=== PATIENT | female | born 1935 | race Caucasian/White ===

== ENCOUNTER → 2016-11-19 | Outpatient (CLI) | payer MEDICARE ==
--- NOTE | 2016-11-19 14:57 | KCIC ---
History: Arthritis, M17.0. Comparison: None. Findings: AP, lateral, and oblique views of the right knee. No acute fracture or dislocation is identified. No joint effusion is seen. Moderate tricompartment degeneration is seen with marginal osteophyte formation. A few small joint bodies are suspected. AP, lateral, and oblique views of the left knee. No acute fracture or dislocation is identified. No joint effusion is seen. Mild-moderate tricompartment degeneration is present. Impression: Bilateral knee degeneration, right worse than left. Electronically signed by: Cuba Mayberry MD (11/19/2016 2:53 PM) [place] [id number]
== END | disposition home or self-care (01) ==
LOC: KCIC 14:29
PROVIDERS: ATTEND Family Medicine
DX: M17.0 Bilateral primary osteoarthritis of knee (principal)
CPT/HCPCS: 73562

== ENCOUNTER → 2020-06-27 | Outpatient (CLI) | payer MEDICARE ==
[2020-06-06 11:00] VITALS: BP 115/83
[~2020-06-27] MED LIST: APIX5TAB PO; DONE10TA7 PO
== END ==
LOC: LAB 09:54
PROVIDERS: ATTEND Internal Medicine Cardiovascular Disease
DX: Z01.812 Encounter for preprocedural laboratory examination (principal); Z20.822 Contact with and (suspected) exposure to COVID-19
CPT/HCPCS: U0003; U0005

== ENCOUNTER 2020-06-28 06:55 | Outpatient (CLI) | payer MEDICARE, OTHER ==
[~2020-06-28] VITALS: Ht 175.3 cm; Wt 55.8 kg
[2020-06-28] VITALS (9 sets, daily range): BP systolic 91–134; BP diastolic 56–80
[2020-06-28 07:44] LABS: HEMATOCRIT 35.7 % (36.0-47.0); HEMOGLOBIN 11.9 g/dL (12.0-15.5); RED BLOOD COUNT 3.82 x10^6/uL (3.50-5.40); RED CELL DISTRIBUTION WIDTH 15.9 % (11.5-14.5); WHITE BLOOD COUNT 4.4 x10^3/uL (4.0-11.0)
[2020-06-28 07:56] LABS: PROTHROMBIN TIME PATIENT 12.9 SEC (11.7-14.0)
[2020-06-28 07:57] LABS: CALCIUM 8.2 mg/dL (8.5-10.1); CREATININE 0.7 mg/dL (0.6-1.0); GFR 79.2; POTASSIUM 3.6 mmol/L (3.5-5.1)
[2020-06-28] MEDS ORDERED: LIDOCAINE 2%/EPI 1:100,000 20 ML VIAL. ONE (08:10)
[2020-06-28] MEDS ORDERED: MIDAZOLAM HCL/PF 2 MG/2 ML VIAL. ONE (08:20)
[2020-06-28] MEDS ORDERED: ceFAZolin SODIUM IV Push 1 GM VIAL. IVP ONE (08:20)
[2020-06-28] MEDS ORDERED: fentaNYL PF VIAL 100 MCG/2 ML VIAL ONE (08:20)
[2020-06-28] MEDS ORDERED: BACITRACIN 50,000 UNIT in IV NORMAL SALINE 250ML 250 ML IRR ONE (08:30)
--- NOTE | 2020-06-28 08:40 | PDOC ---
MODERATE SEDATION ASSESSMENT RISKS/ALTERNATIVES Risks/Alternatives Risks and alternatives of this type of sedation and procedure discussed with: RISK/ALTERNATIVES: Patient H & P ON CHART H & P H & P on chart and reviewed for co-morbid conditions and appropriate labs. H&P ON CHART: Yes STATUS PREG STATUS ASSESSED: N/A MEDS/ALLERGIES REVIEWED Meds/Allergies Reviewed Medications and Allergies including time and route of recently administered narcotics and sedatives. MEDS/ALLERGIES REVIEWED: Yes ASA RATING ASA RATING: II AIRWAY ASSESSMENT Airway Assessment Airway patency, oral function limitations, presence of caps, crowns, dentures, partials, and ability to extend neck assessed. AIRWAY ASSESSMENT: Yes MALLAMPATI SCORE MALLAMPATI SCORE: II PRE-SEDATION ASSESSMENT PRE-SEDATION ASSESSMENT: Yes DANNY GIVENS MD June 28, 2020 08:40
[2020-06-28] MEDS ORDERED: MIDAZOLAM HCL/PF 2 MG/2 ML VIAL. IV ONE (09:00)
[2020-06-28] MEDS ORDERED: fentaNYL PF VIAL 100 MCG/2 ML VIAL IV ONE (09:00)
[2020-06-28] MEDS ORDERED: LIDOCAINE 1%/EPI 1:100,000 20 ML VIAL. INJ ONE (09:00)
--- NOTE | 2020-06-28 09:38 | CARD ---
MR#: [id number] Date of Study: 06/28/2020 Ordering Physician: HAILEY QUINTANA, Referring Physician: HAILEY QUINTANA, Tech: APPROVED REPORT PROCEDURES Medtronic dual-chamber permanent pacemaker generator change FL TIME: 0.2 MINS DOSE: 0.5 GYCM2 MODERATE SEDATION: 33 MINUTES INDICATIONS Sick sinus syndrome s/p permanent pacemaker implantation presenting with battery depletion PROCEDURE After explaining the risks, benefits, and alternative options, informed consent was obtained from the patient. The patient was brought to the cardiac catheterization lab and the left chest and shoulder were prepp ed and draped in a sterile manner. IV conscious sedation was used throughout procedure with appropriate monitoring and was performed in the presence of a registered nurse who was an independent trained observer other than the physician p erforming the procedure. Specimen(s) Removed: No Estimated Blood loss: 15 cc's. 30 cc of 2% lidocaine was infiltrated into the skin and subcutaneous tissues for local anesthesia. A n incision was made over the previous scar and using blunt dissection and cautery, the pocket was ope denis, the capsule exposed and opened and the previously placed generator removed from the pocket. The leads were detached, interrogated and found to be functioning well and very attached to a new Medtro bobby dual-chamber permanent pacemaker generator model [id number], serial number [id number]. This was plac ed in the pocket, that was subsequently closed in 3 layers. Hemostasis was secured. Patient tolerat ed the procedure well. There were no immediate complications. THE VENTRICULAR ELECTRODE PARAMETERS A new lead was inserted/positioned into the ventricle and attached to the appropriate receptacle on the new pulse generator and setscrews firmly tightened to insure adequate contact and stability. The lead and pulse generator were placed into the subcutaneous pocket. Sharp and sponge counts were conf irmed to be correct. The operative site was dressed in sterile fashion. The patient tolerated the pro cedure well and was transferred tothe floor in stable condition. CONCLUSION Successful Medtronic dual-chamber permanent pacemaker generator change in a patient with sick sinus s yndrome s/p permanent pacemaker implantation presenting with battery depletion. Signed by : Shaw Cooper, Electronically Approved : 06/28/2020 09:38:25
--- NOTE | 2020-06-28 11:52 | NUR ---
discharge instructions reviewed with family. PIV dc'd. Pt ambulated and tolerated PO
[2020-06-29] MEDS ORDERED: ceFAZolin SODIUM IV Push 1 GM VIAL. IVP ONE (06:00)
== END 2020-06-28 11:54 | disposition home or self-care (01) ==
LOC: CCL 06:55
PROVIDERS: ATTEND Internal Medicine Cardiovascular Disease
DX: I49.5 Sick sinus syndrome (principal); M19.90 Unspecified osteoarthritis, unspecified site; F32.9 Major depressive disorder, single episode, unspecified; Z79.899 Other long term (current) drug therapy; Z98.890 Other specified postprocedural states
CPT/HCPCS: 33228; 36415; 80048; 85027; 85610; 99152; 99153; C1785; J0690; J2250; J3010; J3490; J7050; 33213; J7030

== ENCOUNTER 2020-10-19 14:12 | Emergency (ER) | payer MEDICARE, OTHER ==
[~2020-10-19] VITALS: Ht 167.6 cm; Wt 64.0 kg
--- NOTE | 2020-10-19 14:24 | ED.ADGEN ---
Past Medical History Past Medical History: Dementia, Diverticulitis, Other Additional Past Medical Histor: pacemaker, syncope, Past Surgical History: Other Smoking Status: Never Smoker Alcohol Use: None General Adult HPI: HPI: Patient is a 85 year old female coming in via EMS after fall last night resulting in right knee pain and low back pain. Patient has history of Alzheimer's and history provided by EMS and . not directly witnessed fall believes was of counter: There is no loss of consciousness. No prolonged downtime. Patient takes Eliquis. No bleeding or open wounds. Review of Systems: Review of Systems: All other systems within normal limits except for as noted in the HPI Allergies: Allergies: Allergies Coded Allergies Type Severity Reaction Last Updated Verified No Known Drug Allergies 10/19/20 No Physical Exam: PE: Constitutional: Well developed, well nourished, no acute distress, non-toxic appearance. [] HENT: Normocephalic, atraumatic, bilateral external ears normal, nose normal. [] Eyes: PERRLA, conjunctiva normal, no discharge. [] Neck: No rigidity, supple, no stridor. [] Cardiovascular: Regular rate and rhythm, brisk cap refill [] Lungs & Thorax: Non labored symmetric respirations, no tachypnea or respiratory distress [] Abdomen: Soft, nondistended. Skin: Warm, dry, no erythema, no rash. [] Back: Unremarkable, no step-off deformity, tenderness on the lumbar spine and right sacrum Extremities: No deformities, range of motion grossly intact, no lower extremity edema. Right knee mildly swollen compared to left, no deformity or crepitus. [] Neurologic: Alert and oriented X 3, no focal deficits noted. [] Psychologic: Affect normal, judgement normal, mood normal. [] Current Patient Data: Labs: Laboratory Tests Test 10/19/20 14:30 White Blood Count 5.6 x10^3/uL (4.0-11.0) Red Blood Count 3.86 x10^6/uL (3.50-5.40) Hemoglobin 11.8 g/dL (12.0-15.5) L Hematocrit 35.1 % (36.0-47.0) L Mean Corpuscular Volume 91 fL (79-100) Mean Corpuscular Hemoglobin 31 pg (25-35) Mean Corpuscular Hemoglobin Concent 34 g/dL (31-37) Red Cell Distribution Width 14.7 % (11.5-14.5) H Platelet Count 219 x10^3/uL (140-400) Neutrophils (%) (Auto) 71 % (31-73) Lymphocytes (%) (Auto) 16 % (24-48) L Monocytes (%) (Auto) 11 % (0-9) H Eosinophils (%) (Auto) 1 % (0-3) Basophils (%) (Auto) 1 % (0-3) Neutrophils # (Auto) 4.0 x10^3/uL (1.8-7.7) Lymphocytes # (Auto) 0.9 x10^3/uL (1.0-4.8) L Monocytes # (Auto) 0.6 x10^3/uL (0.0-1.1) Eosinophils # (Auto) 0.1 x10^3/uL (0.0-0.7) Basophils # (Auto) 0.0 x10^3/uL (0.0-0.2) Sodium Level 140 mmol/L (136-145) Potassium Level 3.7 mmol/L (3.5-5.1) Chloride Level 108 mmol/L (98-107) H Carbon Dioxide Level 26 mmol/L (21-32) Anion Gap 6 (6-14) Blood Urea Nitrogen 10 mg/dL (7-20) Creatinine 0.7 mg/dL (0.6-1.0) Estimated GFR (Cockcroft-Gault) 79.2 BUN/Creatinine Ratio 14 (6-20) Glucose Level 130 mg/dL (70-99) H Calcium Level 8.5 mg/dL (8.5-10.1) Total Bilirubin 0.6 mg/dL (0.2-1.0) Aspartate Amino Transferase (AST) 15 U/L (15-37) Alanine Aminotransferase (ALT) 22 U/L (14-59) Alkaline Phosphatase 89 U/L (46-116) Troponin I Quantitative < 0.017 ng/mL (0.000-0.055) Total Protein 6.2 g/dL (6.4-8.2) L Albumin 3.2 g/dL (3.4-5.0) L Albumin/Globulin Ratio 1.1 (1.0-1.7) Laboratory Tests 10/19/20 14:30 Laboratory Tests 10/19/20 14:30 Vital Signs: Vital Signs Date Time Temp Pulse Resp B/P (MAP) Pulse Ox O2 Delivery O2 Flow Rate FiO2 10/19/20 14:31 97.5 76 16 131/62 99 Room Air 97.5 EKG: EKG: [] Heart Score: C/O Chest Pain: No HEART Score for Chest Pain: HEART Score for Chest Pain Response (Comments) Value History Slighlty/Non-Suspicious 0 Age > 65 2 Risk Factors 1 or 2 Risk Factors 1 Troponin < Normal Limit 0 Total 3 Risk Factors: Risk Factors: DM, Current or recent (<one month) smoker, HTN, HLP, family history of CAD, obesity. Risk Scores: Score 0 - 3: 2.5% MACE over next 6 weeks - Discharge Home Score 4 - 6: 20.3% MACE over next 6 weeks - Admit for Clinical Observation Score 7 - 10: 72.7% MACE over next 6 weeks - Early Invasive Strategies Radiology/Procedures: Radiology/Procedures: [facility] [address] [place] [address] IMAGING REPORT Signed PATIENT: ALVERTO PINA ACCOUNT: [id number] : 1935 LOCATION: ER AGE: 85 SEX: F EXAM STATUS: REG ER ORD. PHYSICIAN: MALCOM TONG MD REASON: fall, sacral pain PROCEDURE: CT PELVIS WO CONTRAST EXAMINATION: CT lumbar spine and pelvis without IV contrast INDICATION:85 years, Female, fall, low back pain. COMPARISON: 03/08/2012 TECHNIQUE: Spiral acquisition of images of the lumbar spine and pelvis were obtained without IV contrast. Sagittal and coronal 2D reformatted series were provided by the technologist. The CT scan was acquired using radiation reduction techniques, such automated exposure control, adjustment of the mA and/or kV according to the patient's size and use of iterative reconstruction techniques. FINDINGS: CT LUMBAR SPINE: The vertebral bodies are normal in height. No acute fracture or subluxation. Grade 1 anterolisthesis of L4 over L5. Lumbarization of S1. Diffuse osteopenia. Mild levoconvex scoliosis with severe multilevel degenerative changes, worst at L4-5 and L5-S1. No significant canal stenosis. Mild multilevel bilateral neuroforaminal narrowing. There is a 2.7 cm left renal cyst. CT PELVIS: No acute fracture, dislocation or subluxation. Severe degenerative changes in sacroiliac joints. Diffuse osteopenia. Extensive colonic diverticulosis. Few cystic structures in the left pelvic sidewall with the largest measures 6.6 cm. There is a 4.0 cm fluid density cystic lesion in the subcutaneous tissue of the right anterior abdominal wall, favors benign etiology. IMPRESSION: 1. No acute osseous process in the lumbar spine or pelvis. 2. Few cystic structures in the left pelvic sidewall measuring up to 6.6 cm. Differential includes bladder diverticula versus ovarian cysts. Recommend further evaluation with nonemergent pelvic ultrasound. 3. Extensive colonic diverticulosis. Electronically signed by: Kalia Soto MD (10/19/2020 3:15 PM) [facility] DICTATED and SIGNED BY: KALIA SOTO MD DATE: 10/19/20 [id number] 0 [] [facility] [address] [place] [address] IMAGING REPORT Signed PATIENT: ALVERTO PINA ACCOUNT: [id number] : 1935 LOCATION: ER AGE: 85 SEX: F EXAM STATUS: REG ER ORD. PHYSICIAN: MALCOM TONG MD REASON: fall,l swelling PROCEDURE: KNEE RIGHT 3V XR KNEE 3 VIEWS_RT History: Fall, swelling Comparison: 11/19/2016 Technique: 3 views of the right knee. Findings: Decreased osseous mineralization. No fracture or dislocation. Tricompartmental degenerative changes with irregularity at the medial femoral condyle, tricompartmental osteophytes and large popliteal fossa osteochondral body measuring 2 cm diameter. No knee effusion. No focal soft tissue swelling. Impression: 1. Moderate tricompartmental degenerative changes without acute osseous abnormality of the right knee. Electronically signed by: Roel Bermeo MD (10/19/2020 2:48 PM) [id number] DICTATED and SIGNED BY: ROEL BERMEO MD DATE: 10/19/20 [id number] 0 Course & Med Decision Making: Course & Med Decision Making Pertinent Labs and Imaging studies reviewed. (See chart for details) Patient up and ambulatory with a steady gait. No injuries found. and patient requesting to be discharged. [] Dragon Disclaimer: Dragon Disclaimer: This electronic medical record was generated, in whole or in part, using a voice recognition dictation system. Departure Departure Impression: Primary Impression: Fall Additional Impression: Knee pain, right Disposition: HOME / SELF CARE / HOMELESS Condition: STABLE Referrals: ZAMZAM HE MD (PCP) Patient Instructions: RICE - Routine Care for Injuries Problem Qualifiers MALCOM TONG MD Oct 19, 2020 14:24
[2020-10-19 14:36] LABS: BASO % 1 % (0-3); EOS # 0.1 x10^3/uL (0.0-0.7); EOS % 1 % (0-3); HEMATOCRIT 35.1 % (36.0-47.0); HEMOGLOBIN 11.8 g/dL (12.0-15.5); LYMPH # 0.9 x10^3/uL (1.0-4.8); LYMPH % 16 % (24-48); MEAN CORPUSCULAR HEMOGLOBIN 31 pg (25-35); MEAN CORPUSCULAR HGB CONC 34 g/dL (31-37); MEAN CORPUSCULAR VOLUME 91 fL (79-100); MONO # 0.6 x10^3/uL (0.0-1.1); MONO % 11 % (0-9); NEUT % 71 % (31-73); PLATELET COUNT 219 x10^3/uL (140-400); RED BLOOD COUNT 3.86 x10^6/uL (3.50-5.40); RED CELL DISTRIBUTION WIDTH 14.7 % (11.5-14.5); WHITE BLOOD COUNT 5.6 x10^3/uL (4.0-11.0)
[2020-10-19 14:47] LABS: CALCIUM 8.5 mg/dL (8.5-10.1); CREATININE 0.7 mg/dL (0.6-1.0); GFR 79.2; POTASSIUM 3.7 mmol/L (3.5-5.1)
--- NOTE | 2020-10-19 14:51 | RAD ---
XR KNEE 3 VIEWS_RT History: Fall, swelling Comparison: 11/19/2016 Technique: 3 views of the right knee. Findings: Decreased osseous mineralization. No fracture or dislocation. Tricompartmental degenerative changes w ith irregularity at the medial femoral condyle, tricompartmental osteophytes and large popliteal linnette a osteochondral body measuring 2 cm diameter. No knee effusion. No focal soft tissue swelling. Impression: 1. Moderate tricompartmental degenerative changes without acute osseous abnormality of the right kne e. Electronically signed by: Roel Nelson MD (10/19/2020 2:48 PM) [id number]
[2020-10-19 14:55] LABS: ALBUMIN 3.2 g/dL (3.4-5.0); ALBUMIN/GLOBULIN RATIO 1.1 (1.0-1.7); TOTAL BILIRUBIN 0.6 mg/dL (0.2-1.0); TOTAL PROTEIN 6.2 g/dL (6.4-8.2)
--- NOTE | 2020-10-19 15:18 | RAD ---
EXAMINATION: CT lumbar spine and pelvis without IV contrast INDICATION:85 years, Female, fall, low back pain. COMPARISON: 03/08/2012 TECHNIQUE: Spiral acquisition of images of the lumbar spine and pelvis were obtained without IV contr ast. Sagittal and coronal 2D reformatted series were provided by the technologist. The CT scan was ac quired using radiation reduction techniques, such automated exposure control, adjustment of the mA an d/or kV according to the patient's size and use of iterative reconstruction techniques. FINDINGS: CT LUMBAR SPINE: The vertebral bodies are normal in height. No acute fracture or subluxation. Grade 1 anterolisthesis of L4 over L5. Lumbarization of S1. Diffuse osteopenia. Mild levoconvex scoliosis wi th severe multilevel degenerative changes, worst at L4-5 and L5-S1. No significant canal stenosis. Mi ld multilevel bilateral neuroforaminal narrowing. There is a 2.7 cm left renal cyst. CT PELVIS: No acute fracture, dislocation or subluxation. Severe degenerative changes in sacroiliac j oints. Diffuse osteopenia. Extensive colonic diverticulosis. Few cystic structures in the left pelvic sidewall with the largest measures 6.6 cm. There is a 4.0 cm fluid density cystic lesion in the subc utaneous tissue of the right anterior abdominal wall, favors benign etiology. IMPRESSION: 1. No acute osseous process in the lumbar spine or pelvis. 2. Few cystic structures in the left pelvic sidewall measuring up to 6.6 cm. Differential includes b ladder diverticula versus ovarian cysts. Recommend further evaluation with nonemergent pelvic ultraso und. 3. Extensive colonic diverticulosis. Electronically signed by: Jasbir Soto MD (10/19/2020 3:15 PM) [facility]
[2020-10-19 16:57] VITALS: BP 147/75
== END 2020-10-19 16:40 | disposition home or self-care (01) ==
LOC: ER 14:12
DX: M25.561 Pain in right knee (principal); M54.5 Low back pain; G89.11 Acute pain due to trauma; G30.9 Alzheimer's disease, unspecified; F02.80 Dementia in other diseases classified elsewhere, unspecified severity, without behavioral disturbance, psychotic disturbance, mood disturbance, and anxiety; W18.39XA Other fall on same level, initial encounter; Y93.89 Activity, other specified; Y92.89 Other specified places as the place of occurrence of the external cause; Y99.8 Other external cause status
CPT/HCPCS: 36415; 72131; 72192; 73562; 80053; 84484; 85025; 99285-25

== ENCOUNTER 2021-05-02 08:33 | Inpatient (IN) | payer MEDICARE ==
[~2021-05-02] VITALS: Ht 170.2 cm; Wt 56.6 kg
--- NOTE | 2021-05-02 08:58 | PHYS DOC ---
Past Medical History Past Medical History: Dementia, Diverticulitis, Other Additional Past Medical Histor: syncope,A-FLUTTER,OA,COVID-19,FALLS Past Surgical History: Pacemaker, Other Smoking Status: Never Smoker Alcohol Use: None General Adult EDM: Chief Complaint: EARACHE/EAR PAIN HPI: HPI: Patient is a 86 year old female who presents here via EMS from her senior care facility with right ear swelling and drainage. I am unable to elicit any meaningful information from the patient secondary to chronic dementia and constant altered mental status. She is reportedly at her baseline mental status per EMS report, from the senior care facility report. No reported injury. According to EMS, the nursing staff told them that they just noticed that your swelling within the last 24 hours. There have been no reported fevers or cough. She also does have some right-sided cheek and facial swelling, which was reportedly just noticed within the last 24 hours also. Review of systems markedly limited secondary to patient's dementia, chronic clinical conditions and lack of verbal report from the senior care facility. Review of Systems: Review of Systems: Review of systems markedly limited secondary to clinical condition, dementia, see HPI. Heart Score: C/O Chest Pain: N/A Risk Factors: Risk Factors: DM, Current or recent (<one month) smoker, HTN, HLP, family history of CAD, obesity. Risk Scores: Score 0 - 3: 2.5% MACE over next 6 weeks - Discharge Home Score 4 - 6: 20.3% MACE over next 6 weeks - Admit for Clinical Observation Score 7 - 10: 72.7% MACE over next 6 weeks - Early Invasive Strategies Allergies: Allergies: Allergies Coded Allergies Type Severity Reaction Last Updated Verified No Known Drug Allergies 10/19/20 No Physical Exam: PE: Constitutional: Frail, chronically ill-appearing, resting comfortably on the ED gurney. Nontoxic. HENT: Normocephalic, atraumatic, oral oropharynx is patent, mucous membranes are dry. There is some subtle soft tissue swelling of the right cheek area, there appears to be moderate soft tissue swelling of the entire right pinna, right external auditory canal is edematous, erythematous, maceration, serous fluid draining. Tympanic membrane does appear to be intact. There appears to be some dried blood adjacent to the TM in the ear canal. There is some mastoid erythema and swelling and tenderness. No palpable crepitus or subcutaneous emphysema. No dusky discoloration of the pinna. There is some subtle erythema of the right cheek and preauricular area of the right ear. No significant facial edema, no evidence of acute trauma. Eyes: GentaVed are pale, sclera anicteric. Neck: Normal range of motion, no tenderness, supple, no stridor. No meningismus, trachea midline Cardiovascular:Heart rate regular rhythm, was 2 radial pulses bilaterally Lungs & Thorax: Bilateral breath sounds clear to auscultation, no rales, rhonchi or wheezes. Equal chest rise Abdomen: Abdomen is soft, nondistended, nontender to palpation. Skin: Subtle warmth and erythema of the right entire pinna, postauricular and preauricular areas of the right ear, swelling and erythema of the external auditory canal of the right ear. Extremities: No limb deformity, pelvis is stable, no calf tenderness. Neurologic: Sleeping, resting, eyes open to voice, eyes open to pain, localizes to pain, no facial asymmetry, mumbles incoherently, not oriented, gag reflex intact, she does appear to move all 4 extremities equally. Psychologic: Affect is flat Current Patient Data: Vital Signs: Vital Signs Date Time Temp Pulse Resp B/P (MAP) Pulse Ox O2 Delivery O2 Flow Rate FiO2 05/02/21 08:33 97.0 62 20 117/92 (100) 100 Room Air 97.0 EKG: EKG: [] Radiology/Procedures: Radiology/Procedures: IMAGING REPORT Signed PATIENT: ALVERTO PINA ACCOUNT: [id number] : 1935 LOCATION: ER AGE: 86 SEX: F EXAM STATUS: REG ER ORD. PHYSICIAN: AARON JAMIL DO REASON: R malignant OE, concern for mastoiditis PROCEDURE: CT HEAD AND MAXILLOFACIAL W/ PQRS Compliance Statement: One or more of the following individualized dose reduction techniques were utilized for this examination: 1. Automated exposure control 2. Adjustment of the mA and/or kV according to patient size 3. Use of iterative reconstruction technique CT HEAD AND MAXILLOFACIAL W Clinical Indication: Reason: R malignant OE, concern for mastoiditis Comparison: None. TECHNIQUE: Helical CT imaging of the brain and maxillofacial is performed after 70 cc of Omnipaque 300 IV contrast. Findings: There is generalized cerebral atrophy. There is no midline shift or mass effect. There is mild motion artifact. There are periventricular white matter changes probably due to chronic small vessel ischemic disease. No abnormal enhancement in the brain parenchyma is identified. The right mastoid air cells are clear. There is motion artifact limiting evaluation of the ossicular chain. There is narrowing of the right external auditory canal. There is opacification at the lateral margin of the middle ear cavity, coronal image 20 of series 11. The opacities just inferior to the scutum, measures approximately 0.8 cm craniocaudal, 1.4 cm transverse, and 0.6 cm AP. No definite bony erosion of the skull base is identified. There is heterogeneous masslike enhancement superficial to the right external auditory canal. The heterogeneous enhancement extends inferiorly and is inseparable from the right parotid gland. The masslike area measures approximately 4.8 cm AP by 4.5 cm transverse by 6.5 cm craniocaudal. IMPRESSION: 1. There is heterogeneous masslike enhancement of the right parotid gland and the right external auditory canal. There is infiltration of surrounding soft tissues. Primary concern is malignancy. Squamous cell carcinoma or parotid neoplasm or metastatic disease are considerations. 2. There is opacity in the lateral right middle ear cavity. The tympanic membrane is likely obscured due to the opacity. The right ossicular chain is probably intact. The right mastoid air cells are clear. No temporal bone erosion is identified. 3. Generalized cerebral atrophy. Electronically signed by: Michael Calderon MD (05/02/2021 11:08 AM) [id number] DICTATED and SIGNED BY: MICHAEL CALDERON MD DATE: 05/02/21 [id number] 0 Course & Med Decision Making: Course & Med Decision Making Pertinent Labs and Imaging studies reviewed. (See chart for details) Blood cultures are obtained. I empirically ordered IV Zosyn and vancomycin for treatment of millages had malignant otitis externa possible mastoiditis. CT findings are concerning for right parotid mass/malignancy. I spoke with the patient's , her power of managing attorney, via phone, about the findings. He does not wish to pursue any biopsy, surgical intervention or further invasive measures or aggressive measures regarding this mass. I did explain that she would likely have to be transferred to another hospital for ENT consultation if that were the case, but he declines and wishes for her to stay here. He is comfortable with continuing IV antibiotics and admission to the hospital here. He confirms DNR status. He is informed of all of the findings and differential diagnosis and the plan of care, he is comfortable with this. The patient is accepted for admission by Dr. Hinojosa. Koffi Disclaimer: Koffi Disclaimer: This electronic medical record was generated, in whole or in part, using a voice recognition dictation system. 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 Hinojosa) Condition: GUARDED Referrals: ZAMZAM HE MD (PCP) AARON JAMIL DO May 02, 2021 08:58
[2021-05-02] MEDS ORDERED: VANCOMYCIN 1.25 GM in IV NORMAL SALINE 500ML BAG 500 ML IV ONE (09:15)
[2021-05-02] MEDS ORDERED: PIPERACILLIN/TAZOBACTAM 3.375 GM in IV NORMAL SALINE 50ML 50 ML IV ONE (09:15)
[2021-05-02 10:05] LABS: BASO % 0 % (0-3); EOS % 0 % (0-3); HEMATOCRIT 34.7 % (36.0-47.0); HEMOGLOBIN 11.1 g/dL (12.0-15.5); LYMPH # 0.3 x10^3/uL (1.0-4.8); LYMPH % 2 % (24-48); MEAN CORPUSCULAR HEMOGLOBIN 30 pg (25-35); MEAN CORPUSCULAR HGB CONC 32 g/dL (31-37); MEAN CORPUSCULAR VOLUME 92 fL (79-100); MONO # 0.9 x10^3/uL (0.0-1.1); MONO % 6 % (0-9); NEUT # 14.3 x10^3/uL (1.8-7.7); NEUT % 93 % (31-73); PLATELET COUNT 268 x10^3/uL (140-400); RED BLOOD COUNT 3.76 x10^6/uL (3.50-5.40); RED CELL DISTRIBUTION WIDTH 17.3 % (11.5-14.5); WHITE BLOOD COUNT 15.4 x10^3/uL (4.0-11.0)
[2021-05-02] MEDS ORDERED: CONTRAST GIVEN. MC PRN (10:15)
[2021-05-02] MEDS ORDERED: IOHEXOL 300 MG/ML 100ML VIAL. IV ONE ×2 (10:15→10:30)
[2021-05-02 10:16] LABS: CALCIUM 9.1 mg/dL (8.5-10.1); CREATININE 0.8 mg/dL (0.6-1.0); GFR 67.7; POTASSIUM 3.5 mmol/L (3.5-5.1)
[2021-05-02] MEDS ORDERED: IV NORMAL SALINE 1000ML BAG 1,000 ML IV ONE (10:30)
--- NOTE | 2021-05-02 11:10 | RAD ---
PQRS Compliance Statement: One or more of the following individualized dose reduction techniques were utilized for this examinat ion: 1. Automated exposure control 2. Adjustment of the mA and/or kV according to patient size 3. Use of iterative reconstruction technique CT HEAD AND MAXILLOFACIAL W Clinical Indication: Reason: R malignant OE, concern for mastoiditis Comparison: None. TECHNIQUE: Helical CT imaging of the brain and maxillofacial is performed after 70 cc of Omnipaque 30 0 IV contrast. Findings: There is generalized cerebral atrophy. There is no midline shift or mass effect. There is mild motion artifact. There are periventricular white matter changes probably due to chronic small vessel ischem ic disease. No abnormal enhancement in the brain parenchyma is identified. The right mastoid air cells are clear. There is motion artifact limiting evaluation of the ossicular chain. There is narrowing of the right external auditory canal. There is opacification at the lateral margin of the middle ear cavity, coronal image 20 of series 11. The opacities just inferior to the s cutum, measures approximately 0.8 cm craniocaudal, 1.4 cm transverse, and 0.6 cm AP. No definite bony erosion of the skull base is identified. There is heterogeneous masslike enhancement superficial to the right external auditory canal. The het erogeneous enhancement extends inferiorly and is inseparable from the right parotid gland. The massli ke area measures approximately 4.8 cm AP by 4.5 cm transverse by 6.5 cm craniocaudal. IMPRESSION: 1. There is heterogeneous masslike enhancement of the right parotid gland and the right external aud itory canal. There is infiltration of surrounding soft tissues. Primary concern is malignancy. Squamo us cell carcinoma or parotid neoplasm or metastatic disease are considerations. 2. There is opacity in the lateral right middle ear cavity. The tympanic membrane is likely obscured due to the opacity. The right ossicular chain is probably intact. The right mastoid air cells are cl ear. No temporal bone erosion is identified. 3. Generalized cerebral atrophy. Electronically signed by: Michael Calderon MD (05/02/2021 11:08 AM) [id number]
[2021-05-02 13:31] VITALS: BP 114/74
[2021-05-02] MEDS ORDERED: PIP/TAZO PER PHARMACY MC PRN (14:15)
[2021-05-02] MEDS ORDERED: [UNRECOGNIZED DRUG - CODE] PO (14:48)
[2021-05-02] MEDS ORDERED: APIX5TAB PO (14:48)
[2021-05-02] MEDS ORDERED: HYDR-2761 PO (14:48)
[2021-05-02] MEDS ORDERED: AMIO200T53 PO (14:48)
[2021-05-02] MEDS ORDERED: ERGO500089 PO (14:48)
[2021-05-02 15:00] VITALS: BP 116/74
[2021-05-02] MEDS ORDERED: HYDROcodone/APAP 5/325MG 1 TAB TABLET PO PRN (15:00)
--- NOTE | 2021-05-02 15:14 | PDOC1 ---
History and Physical Date of Admission Date of Admission DATE: 05/02/21 TIME: 15:09 Source Source: Chart review, Patient History of Present Illness History of Present Illness Ms. Rodriguez is a 86 year old female, admit for right ear swelling and drainage. Noted dementia and constant encephalopathy, her helps with history, 3 days of facial redness, and now ear is swollen. She has recent hip surery adn then other hip wound, and has been at [facility] and now has been at [facility]. No reported injury. There have been no reported fevers or cough. She also does have some right-sided cheek and facial swelling, . 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, [employer], retired, Past Medical History Cardiovascular: HTN Pulmonary: Pulmonary embolus CENTRAL NERVOUS SYSTEM: Dementia Musculoskeletal: low back pain Past Surgical History Past Surgical History: No pertinent history Family History Family History: No Significant Social History Smoke: No ALCOHOL: none Drugs: None Current Problem List Problem List Problems Medical Problems: (1) Mass of right parotid gland Status: Acute (2) Right otitis externa Status: Acute Current Medications Current Medications Current Medications Piperacillin Sod/ Tazobactam Sod 3.375 gm/Sodium Chloride 50 ml @ 100 mls/hr 1X ONCE IV Last administered on 05/02/21at 10:01; Start 05/02/21 at 09:15; Stop 05/02/21 at 09:44; Status DC Vancomycin HCl 1.25 gm/Sodium Chloride 500 ml @ 250 mls/hr 1X ONCE IV Last administered on 05/02/21at 10:25; Start 05/02/21 at 09:15; Stop 05/02/21 at 11:14; Status DC Iohexol (Omnipaque 300 Mg/ml) 70 ml 1X ONCE IV Last administered on 05/02/21at 10:15; Start 05/02/21 at 10:15; Stop 05/02/21 at 10:16; Status DC Info (CONTRAST GIVEN -- Rx MONITORING) 1 each PRN DAILY PRN MC SEE COMMENTS; Start 05/02/21 at 10:15; Stop 05/04/21 at 10:14 Sodium Chloride 1,000 ml @ 1,000 mls/hr 1X ONCE IV Last administered on 05/02/21at 10:24; Start 05/02/21 at 10:30; Stop 05/02/21 at 11:29; Status DC Iohexol (Omnipaque 300 Mg/ml) 70 ml 1X ONCE IV ; Start 05/02/21 at 10:30; Stop 05/02/21 at 10:31; Status DC Vancomycin HCl (Vanco Per Pharmacy) 1 each PRN DAILY PRN MC SEE COMMENTS; Star t 05/02/21 at 14:15 Piperacillin Sod/ Tazobactam Sod (Zosyn Per Pharmacy) 1 each PRN DAILY PRN MC SEE COMMENTS; Start 05/02/21 at 14:15 Piperacillin Sod/ Tazobactam Sod 2.25 gm/Sodium Chloride 50 ml @ 100 mls/hr Q6HRS IV ; Start 05/02/21 at 18:00 Amiodarone HCl (Cordarone) 200 mg DAILY PO ; Start 05/03/21 at 09:00 Apixaban (Eliquis) 5 mg BID PO ; Start 05/02/21 at 21:00 Ergocalciferol (Vitamin D2) 1.25 unit DAILY PO ; Start 05/03/21 at 09:00; Status UNV Acetaminophen/ Hydrocodone Bitart (Lortab 5/325) 1 tab PRN Q6HRS PRN PO PAIN; Start 05/02/21 at 15:00 Guaifenesin (MUCINEX ER with DM) 1 tab BID PO ; Start 05/02/21 at 21:00 Active Scripts Active Eliquis (Apixaban) 5 Mg Tablet 5 Mg PO BID Reported Hydrocodone-Apap 5-325 (Hydrocodone Bit/Acetaminophen) 1 Tab Tablet 1 Tab PO PRN Q6HRS PRN Guaifenesin-Dm 400-20 mg Cplt (Guaifenesin/Dextromethorphan) 1 Each Tablet 1 Each PO BID Vitamin D2 (Ergocalciferol (Vitamin D2)) 1,250 Mcg Capsule 1,250 Mcg PO DAILY Eliquis (Apixaban) 5 Mg Tablet 5 Mg PO BID Amiodarone Hcl 200 Mg Tablet 1 Tab PO DAILY Donepezil Hcl 10 Mg Tablet 1 Tab PO DAILY Allergies Allergies: Coded Allergies: No Known Drug Allergies (Unverified , 10/19/20) ROS Review of System unable, dementia Physical Exam General: Cooperative, No acute distress, Other (not oriented, poor recall) HEENT: Atraumatic, Other (right face swollen, tender, ear red, ) Lungs: Clear to auscultation Abdomen: Normal bowel sounds, Soft Rectal Exam: not examined, mass PELVIC: Nml ext uterus Extremities: Normal pulses Skin: No rashes Neuro: Sensation intact, Other Psych/Mental Status: Mental status NL, Mood NL Vitals Vitals Vital Signs Date Time Temp Pulse Resp B/P (MAP) Pulse Ox O2 Delivery O2 Flow Rate FiO2 05/02/21 13:31 99.2 82 18 114/74 (87) 93 Room Air 99.2 Labs Labs Laboratory Tests Test 05/02/21 09:35 05/02/21 09:50 05/02/21 13:10 Lactic Acid Level 3.6 mmol/L (0.4-2.0) 2.2 mmol/L (0.4-2.0) White Blood Count 15.4 x10^3/uL (4.0-11.0) Red Blood Count 3.76 x10^6/uL (3.50-5.40) Hemoglobin 11.1 g/dL (12.0-15.5) Hematocrit 34.7 % (36.0-47.0) Mean Corpuscular Volume 92 fL (79-100) Mean Corpuscular Hemoglobin 30 pg (25-35) Mean Corpuscular Hemoglobin Concent 32 g/dL (31-37) Red Cell Distribution Width 17.3 % (11.5-14.5) Platelet Count 268 x10^3/uL (140-400) Neutrophils (%) (Auto) 93 % (31-73) Lymphocytes (%) (Auto) 2 % (24-48) Monocytes (%) (Auto) 6 % (0-9) Eosinophils (%) (Auto) 0 % (0-3) Basophils (%) (Auto) 0 % (0-3) Neutrophils # (Auto) 14.3 x10^3/uL (1.8-7.7) Lymphocytes # (Auto) 0.3 x10^3/uL (1.0-4.8) Monocytes # (Auto) 0.9 x10^3/uL (0.0-1.1) Eosinophils # (Auto) 0.0 x10^3/uL (0.0-0.7) Basophils # (Auto) 0.0 x10^3/uL (0.0-0.2) Erythrocyte Sedimentation Rate 51 (0-25) Sodium Level 143 mmol/L (136-145) Potassium Level 3.5 mmol/L (3.5-5.1) Chloride Level 106 mmol/L (98-107) Carbon Dioxide Level 27 mmol/L (21-32) Anion Gap 10 (6-14) Blood Urea Nitrogen 22 mg/dL (7-20) Creatinine 0.8 mg/dL (0.6-1.0) Estimated GFR (Cockcroft-Gault) 67.7 Glucose Level 114 mg/dL (70-99) Calcium Level 9.1 mg/dL (8.5-10.1) C-Reactive Protein, Quantitative 321.0 mg/L (0-3.3) Laboratory Tests Test 05/02/21 09:35 05/02/21 09:50 05/02/21 13:10 Lactic Acid Level 3.6 mmol/L (0.4-2.0) 2.2 mmol/L (0.4-2.0) White Blood Count 15.4 x10^3/uL (4.0-11.0) Red Blood Count 3.76 x10^6/uL (3.50-5.40) Hemoglobin 11.1 g/dL (12.0-15.5) Hematocrit 34.7 % (36.0-47.0) Mean Corpuscular Volume 92 fL (79-100) Mean Corpuscular Hemoglobin 30 pg (25-35) Mean Corpuscular Hemoglobin Concent 32 g/dL (31-37) Red Cell Distribution Width 17.3 % (11.5-14.5) Platelet Count 268 x10^3/uL (140-400) Neutrophils (%) (Auto) 93 % (31-73) Lymphocytes (%) (Auto) 2 % (24-48) Monocytes (%) (Auto) 6 % (0-9) Eosinophils (%) (Auto) 0 % (0-3) Basophils (%) (Auto) 0 % (0-3) Neutrophils # (Auto) 14.3 x10^3/uL (1.8-7.7) Lymphocytes # (Auto) 0.3 x10^3/uL (1.0-4.8) Monocytes # (Auto) 0.9 x10^3/uL (0.0-1.1) Eosinophils # (Auto) 0.0 x10^3/uL (0.0-0.7) Basophils # (Auto) 0.0 x10^3/uL (0.0-0.2) Erythrocyte Sedimentation Rate 51 (0-25) Sodium Level 143 mmol/L (136-145) Potassium Level 3.5 mmol/L (3.5-5.1) Chloride Level 106 mmol/L (98-107) Carbon Dioxide Level 27 mmol/L (21-32) Anion Gap 10 (6-14) Blood Urea Nitrogen 22 mg/dL (7-20) Creatinine 0.8 mg/dL (0.6-1.0) Estimated GFR (Cockcroft-Gault) 67.7 Glucose Level 114 mg/dL (70-99) Calcium Level 9.1 mg/dL (8.5-10.1) C-Reactive Protein, Quantitative 321.0 mg/L (0-3.3) VTE Prophylaxis Ordered VTE Prophylaxis Devices: Yes VTE Pharmacological Prophylaxi: Yes Assessment/Plan Assessment/Plan Otitis externa, Vanc/zosyn, has been in nursing homes cellultiis face right parotid tumor Hx PUlmonary embolism, on eliquis demetnia weakness htn Justifications for Admission Other Justification YUNG MARRERO MD May 02, 2021 15:14
[2021-05-02] MEDS: VANCOMYCIN PER PHARMACY MC PRN (17:44)
--- NOTE | 2021-05-02 18:12 | NUR ---
Pharmacy Vancomycin Dosing Note S:Consulted to monitor and dose vancomycin started 05/02/21. O:ALVERTO PINA is a 86 year old F with Cellulitis . Height: 5 feet, 7 inches Weight: 54.5 kg [place] Body Weight: 61.60 Adjusted Body Weight: 58.76 Dosing Weight: Actual Other Antibiotics: ZOSYN LABS: Last BUN: 22 Last Creatinine: 0.8 Creatinine Clearance: 33 mL/min Last WBC: 15.4 Last Procalcitonin: Tmax (past 24 hours): 99.2 Microbiology: I/O: 1550/- Drug Levels: Last level: on at Last dose given 05/02/21 at 1025 Vancomycin Dosing: Loading Dose: 1250 mg x1 Dosing Weight: Actual Target Trough: 10-20 A: Based on: weight and renal function P: 1. Begin Vancomycin 750 mg IV q24h 2. Follow up Trough level on 05/04/21 at 1000 3. Pharmacy will continue to monitor, follow and adjust therapy as needed. Imelda Walker [facility], 05/02/21 [id number]
[2021-05-02] MEDS: PIPERACILLIN/TAZOBACTAM 2.25 GM in IV NORMAL SALINE 50ML 50 ML IV SCH ×2 (18:25→23:51)
[2021-05-02 19:00] VITALS: BP 126/91
--- NOTE | 2021-05-02 19:10 | NUR ---
Pt in bed assessment completed vss poc explained pt confused alert to self pt reoriented to surroundings bed alarm is set call light placed in reach will resume care and continue to monitor pt.
[2021-05-02] MEDS: guaiFENesin DM 600/30MG 1 TAB TAB.ER.12H PO SCH (20:41)
[2021-05-02] MEDS: APIXABAN 5 MG TABLET. PO SCH (20:41)
[2021-05-02 22:59] VITALS: BP 165/70
[2021-05-03 02:58] VITALS: BP 145/74
[2021-05-03] MEDS: PIPERACILLIN/TAZOBACTAM 2.25 GM in IV NORMAL SALINE 50ML 50 ML IV SCH ×3 (05:53→17:29)
[2021-05-03 06:56] LABS: CALCIUM 8.6 mg/dL (8.5-10.1); CREATININE 0.7 mg/dL (0.6-1.0); POTASSIUM 3.3 mmol/L (3.5-5.1)
[2021-05-03 07:00] VITALS: BP 153/83
[2021-05-03] MEDS: APIXABAN 5 MG TABLET. PO SCH ×2 (08:22→22:00)
[2021-05-03] MEDS: AMIODARONE HCL 200 MG TABLET. PO SCH (08:22)
[2021-05-03] MEDS: CHOLECALCIFEROL (VITAMIN D3) 5,000 UNIT CAPSULE PO SCH (08:22)
[2021-05-03] MEDS: guaiFENesin DM 600/30MG 1 TAB TAB.ER.12H PO SCH ×2 (08:22→22:00)
[2021-05-03] MEDS ORDERED: ERGOCALCIFEROL (VITAMIN D2) 50,000 UNIT CAPSULE. PO SCH (09:00)
[2021-05-03] MEDS ORDERED: POTASSIUM CHLORIDE 20 MEQ TABLET.ER. PO ONE (10:00)
[2021-05-03] MEDS: VANCOMYCIN 750 MG in IV NORMAL SALINE 250ML 250 ML IV SCH (10:01)
[2021-05-03] MEDS: POTASSIUM CL 20MEQ IN D5W 1,000 ML IV SCH (10:03)
[2021-05-03 11:00] VITALS: BP 138/77
--- NOTE | 2021-05-03 11:13 | PDOC ---
[employer] PROGRESS NOTE Date of Service DOS: DATE: 05/03/21 TIME: 11:12 Chief Complaint Chief Complaint Otitis externa, Vanc/zosyn, has been in nursing homes cellulitis face right parotid tumor Hx PUlmonary embolism, on eliquis dementia may be more severe than i thought yesterday, not very responsive hypokalemia today weakness htn Vitals/I&O Vitals/I&O: Vital Signs Date Time Temp Pulse Resp B/P (MAP) Pulse Ox O2 Delivery O2 Flow Rate FiO2 05/03/21 08:22 83 145/74 05/03/21 07:00 97.7 18 92 Room Air 97.7 05/02/21 15:00 90.0 I & O 05/02/21 05/02/21 05/03/21 15:00 23:00 07:00 Intake Total 1550 ml 60 ml Balance 1550 ml 60 ml Physical Exam General: Cooperative, No acute distress, Other (not oriented, poor recall) Lungs: Clear Abdomen: Normal bowel sounds, Soft Extremities: Normal pulses Skin: No rashes Labs Labs: Laboratory Tests Test 05/02/21 13:10 05/03/21 04:45 Lactic Acid Level 2.2 mmol/L (0.4-2.0) Sodium Level 145 mmol/L (136-145) Potassium Level 3.3 mmol/L (3.5-5.1) Chloride Level 108 mmol/L (98-107) Carbon Dioxide Level 27 mmol/L (21-32) Anion Gap 10 (6-14) Blood Urea Nitrogen 17 mg/dL (7-20) Creatinine 0.7 mg/dL (0.6-1.0) Estimated GFR (Cockcroft-Gault) 79.0 Glucose Level 93 mg/dL (70-99) Calcium Level 8.6 mg/dL (8.5-10.1) Assessment and Plan Assessmemt and Plan Problems Medical Problems: (1) Mass of right parotid gland Status: Acute (2) Right otitis externa Status: Acute Comment Review of Relevant I have reviewed the following items tay (where applicable) has been applied. Medications: Current Medications Medications (Trade) Dose Ordered Sig/Isabel Route PRN Reason Start Time Stop Time Status Last Admin Dose Admin Vancomycin HCl (Vanco Per Pharmacy) 1 each PRN DAILY PRN MC SEE COMMENTS 05/02/21 14:15 05/02/21 17:44 Piperacillin Sod/ Tazobactam Sod 2.25 gm/Sodium Chloride 50 ml @ 100 mls/hr Q6HRS IV 05/02/21 18:00 05/03/21 05:53 Amiodarone HCl (Cordarone) 200 mg DAILY PO 05/03/21 09:00 05/03/21 08:22 Apixaban (Eliquis) 5 mg BID PO 05/02/21 21:00 05/03/21 08:22 Guaifenesin (MUCINEX ER with DM) 1 tab BID PO 05/02/21 21:00 05/03/21 08:22 Vitamin D (Vitamin D3) 5,000 unit DAILY PO 05/03/21 09:00 05/03/21 08:22 Vancomycin HCl 750 mg/Sodium Chloride 250 ml @ 250 mls/hr Q24H IV 05/03/21 10:30 05/03/21 10:01 Potassium Chloride/Dextrose 1,000 ml @ 75 mls/hr [id number] IV 05/03/21 10:00 05/03/21 10:03 Potassium Chloride (Klor-Con) 40 meq 1X ONCE PO 05/03/21 10:00 05/03/21 10:01 DC 05/03/21 10:01 Justifications for Admission Other Justification YUNG MARRERO MD May 03, 2021 11:13
[2021-05-03] MEDS: VANCOMYCIN PER PHARMACY MC PRN (12:09)
[2021-05-03 15:00] VITALS: BP 91/55
[2021-05-03 15:28] LABS: BILIRUBIN,URINE SMALL (NEG); CLARITY,URINE TURBID; NITRITE,URINE POSITIVE (NEG); PH,URINE 6.5 (<5.0-8.0); PROTEIN,URINE 100 mg/dL (NEG-TRACE)
[2021-05-03 15:30] LABS: RBC,URINE TNTC /HPF (0-2)
[2021-05-03 15:35] LABS: BACTERIA,URINE MODERATE /HPF (0-FEW); COLOR,URINE BROWN; WBC,URINE >40 /HPF (0-4)
--- NOTE | 2021-05-03 16:46 | NUR ---
Wound/Ostomy Care Wound Type/Assessment: WC consult for buttock wound. Pt has stage II PU to right buttock. Cleansed, assessed and redressed wound. Pt right ear is reddened and swollen but has no open wounds. Treatment Recommendations/Plan: Cleanse wound, apply honey, xeroform and foam. Change MWF Education provided: Pt sleeping, did not wake up during dressing change. Educated RN on PU prevention and WC POC Offloading surface/device: TQ2, float heels. Recommended Referrals/Tests: na Discharge Recommendations for dressings: see above
[2021-05-03] MEDS: MULTIVITAMIN with MINERAL TABLET. PO SCH (17:19)
[2021-05-03] MEDS: ASCORBIC ACID 500 MG TABLET PO SCH (17:19)
[2021-05-03 19:00] VITALS: BP 104/55
[2021-05-03] MEDS: LACTOBACILLUS RHAMNOSUS GG 1 CAPSULE. PO SCH (22:00)
[2021-05-03 23:00] VITALS: BP 125/72
[2021-05-04] MEDS: POTASSIUM CL 20MEQ IN D5W 1,000 ML IV SCH ×2 (00:51→12:40)
[2021-05-04] MEDS: PIPERACILLIN/TAZOBACTAM 2.25 GM in IV NORMAL SALINE 50ML 50 ML IV SCH ×5 (00:52→23:15)
[2021-05-04 03:00] VITALS: BP 121/69
[2021-05-04 07:00] VITALS: BP 120/72
[2021-05-04 11:00] VITALS: BP 112/77
[2021-05-04] MEDS: CHOLECALCIFEROL (VITAMIN D3) 5,000 UNIT CAPSULE PO SCH (11:08)
[2021-05-04] MEDS: ASCORBIC ACID 500 MG TABLET PO SCH (11:09)
[2021-05-04] MEDS: AMIODARONE HCL 200 MG TABLET. PO SCH (11:09)
[2021-05-04] MEDS: MULTIVITAMIN with MINERAL TABLET. PO SCH (11:09)
[2021-05-04] MEDS: APIXABAN 5 MG TABLET. PO SCH ×2 (11:09→23:04)
[2021-05-04] MEDS: guaiFENesin DM 600/30MG 1 TAB TAB.ER.12H PO SCH ×2 (11:09→23:04)
[2021-05-04] MEDS: LACTOBACILLUS RHAMNOSUS GG 1 CAPSULE. PO SCH ×2 (11:09→23:04)
[2021-05-04] MEDS: VANCOMYCIN 750 MG in IV NORMAL SALINE 250ML 250 ML IV SCH (11:12)
--- NOTE | 2021-05-04 12:15 | PDOC ---
[employer] PROGRESS NOTE Date of Service DOS: DATE: 05/04/21 TIME: 12:13 Chief Complaint Chief Complaint Otitis externa, Vanc/zosyn, has been in nursing homes cellulitis face right parotid tumor Hx PUlmonary embolism, on eliquis dementia may be more severe than i thought yesterday, not very responsive hypokalemia replaced, weakness htn Vitals/I&O Vitals/I&O: Vital Signs Date Time Temp Pulse Resp B/P (MAP) Pulse Ox O2 Delivery O2 Flow Rate FiO2 05/04/21 11:09 67 120/72 05/04/21 11:00 97.7 20 90 Room Air 97.7 I & O 05/03/21 05/03/21 05/04/21 15:00 23:00 07:00 Intake Total 200 ml 960 ml Output Total 900 ml 300 ml Balance 200 ml 60 ml -300 ml Physical Exam General: Alert, Cooperative, No acute distress, Other (not oriented, poor recall) Heart: Regular rate Lungs: Clear Abdomen: Normal bowel sounds, Soft Extremities: Normal pulses Skin: No rashes Labs Labs: Laboratory Tests Test 05/03/21 14:47 05/04/21 10:05 Urine Collection Type Unknown Urine Color Brown Urine Clarity Turbid Urine pH 6.5 (<5.0-8.0) Urine Specific Herod 1.025 (1.000-1.030) Urine Protein 100 mg/dL (NEG-TRACE) Urine Glucose (UA) Negative mg/dL (NEG) Urine Ketones (Stick) 15 mg/dL (NEG) Urine Blood Large (NEG) Urine Nitrite Positive (NEG) Urine Bilirubin Small (NEG) Urine Urobilinogen Dipstick 4.0 mg/dL (0.2 mg/dL) Urine Leukocyte Esterase Trace (NEG) Urine RBC Tntc /HPF (0-2) Urine WBC >40 /HPF (0-4) Urine Bacteria Moderate /HPF (0-FEW) Urine Mucus Mod /LPF Creatinine 0.5 mg/dL (0.6-1.0) Estimated GFR (Cockcroft-Gault) 116.4 Vancomycin Level Trough 3.0 mcg/mL (10.0-20.0) Vancomycin Last Dose Date 05/03/21 Vancomycin Last Dose Time 1030 Assessment and Plan Assessmemt and Plan Problems Medical Problems: (1) Mass of right parotid gland Status: Acute (2) Right otitis externa Status: Acute Comment Review of Relevant I have reviewed the following items tay (where applicable) has been applied. Medications: Current Medications Medications (Trade) Dose Ordered Sig/Isabel Route PRN Reason Start Time Stop Time Status Last Admin Dose Admin Multivitamins (Thera M Plus) 1 tab DAILY PO 05/03/21 13:00 05/04/21 11:09 Ascorbic Acid (Vitamin C) 500 mg DAILY PO 05/03/21 13:00 05/04/21 11:09 Lactobacillus Rhamnosus (Culturelle) 1 cap BID PO 05/03/21 21:00 05/04/21 11:09 Justifications for Admission Other Justification YUNG MARRERO MD May 04, 2021 12:15
[2021-05-04 12:30] LABS: HEMATOCRIT 29.8 % (36.0-47.0); HEMOGLOBIN 9.5 g/dL (12.0-15.5); RED BLOOD COUNT 3.27 x10^6/uL (3.50-5.40); RED CELL DISTRIBUTION WIDTH 17.6 % (11.5-14.5); WHITE BLOOD COUNT 11.6 x10^3/uL (4.0-11.0)
[2021-05-04 12:32] LABS: ALBUMIN 1.8 g/dL (3.4-5.0); ALBUMIN/GLOBULIN RATIO 0.5 (1.0-1.7); CALCIUM 7.7 mg/dL (8.5-10.1); CREATININE 0.6 mg/dL (0.6-1.0); GFR 94.3; TOTAL BILIRUBIN 0.6 mg/dL (0.2-1.0); TOTAL PROTEIN 5.3 g/dL (6.4-8.2)
[2021-05-04 12:35] LABS: POTASSIUM 2.8 mmol/L (3.5-5.1)
[2021-05-04] MEDS ORDERED: MAGNESIUM SULFATE 2GM 50 ML IV ONE (13:30)
[2021-05-04] MEDS ORDERED: POTASSIUM CHLORIDE 20 MEQ TABLET.ER. PO ONE (13:30)
[2021-05-04 15:00] VITALS: BP 117/65
[2021-05-04 19:00] VITALS: BP 136/77
[2021-05-05] MEDS: VANCOMYCIN 750 MG in IV NORMAL SALINE 250ML 250 ML IV SCH ×2 (00:45→12:20)
[2021-05-05] MEDS: POTASSIUM CL 20MEQ IN D5W 1,000 ML IV SCH (00:46)
[2021-05-05 03:00] VITALS: BP 129/83
[2021-05-05] MEDS: PIPERACILLIN/TAZOBACTAM 2.25 GM in IV NORMAL SALINE 50ML 50 ML IV SCH (06:00)
[2021-05-05 07:00] VITALS: BP 124/79
[2021-05-05] MEDS ORDERED: POTASSIUM CHLORIDE 20 MEQ TABLET.ER. PO SCH (08:00)
--- NOTE | 2021-05-05 10:30 | PDOC ---
[employer] PROGRESS NOTE Date of Service DOS: DATE: 05/05/21 TIME: 10:29 Chief Complaint Chief Complaint Otitis externa, Vanc/zosyn, has been in nursing homes cellulitis face right parotid tumor Hx PUlmonary embolism, on eliquis dementia may be more severe than i thought yesterday, not very responsive hypokalemia replaced, weakness htn History of Present Illness History of Present Illness prognosis poor she is eating, but still weak, dementia noted, infection better, but will be unable to jaye treatment for parotid tumor, DC plan to NH, senior living Vitals/I&O Vitals/I&O: Vital Signs Date Time Temp Pulse Resp B/P (MAP) Pulse Ox O2 Delivery O2 Flow Rate FiO2 05/05/21 07:00 97.9 54 18 124/79 (94) 92 Room Air 97.9 I & O 05/04/21 05/04/21 05/05/21 15:00 23:00 07:00 Intake Total 100 ml 0 ml Output Total 750 ml 100 ml Balance 100 ml -750 ml -100 ml Physical Exam General: Alert, Cooperative, No acute distress, Other (not oriented, poor recall) Heart: Regular rate Lungs: Clear Abdomen: Normal bowel sounds, Soft Extremities: Normal pulses Skin: No rashes Assessment and Plan Assessmemt and Plan Problems Medical Problems: (1) Mass of right parotid gland Status: Acute (2) Right otitis externa Status: Acute Comment Review of Relevant I have reviewed the following items tay (where applicable) has been applied. Medications: Current Medications Medications (Trade) Dose Ordered Sig/Isabel Route PRN Reason Start Time Stop Time Status Last Admin Dose Admin Potassium Chloride (Klor-Con) 40 meq 1X ONCE PO 05/04/21 13:30 05/04/21 13:31 DC 05/04/21 14:59 Magnesium Sulfate 50 ml @ 25 mls/hr 1X ONCE IV 05/04/21 13:30 05/04/21 15:29 DC 05/04/21 16:13 Vancomycin HCl 750 mg/Sodium Chloride 250 ml @ 250 mls/hr Q12H IV 05/04/21 23:00 05/05/21 00:45 Justifications for Admission Other Justification YUNG MARRERO MD May 05, 2021 10:29
[2021-05-05] MEDS ORDERED: AMOX1TAB58 PO (10:37)
--- NOTE | 2021-05-05 10:39 | SNU/HH DC ---
DISCHARGE ORDERS DISCHARGE INFORMATION: DISCHARGE DATE: May 05, 2021 FINAL DIAGNOSIS parotid cancer otitis externa dementia severe malnutrition Problems Medical Problems: (1) Mass of right parotid gland Status: Acute (2) Right otitis externa Status: Acute CONDITION ON DISCHARGE: Stable CODE STATUS: Code Status: DNR/DNI USP: SNF STAY <30 DAYS: Yes POST DISCHARGE ORDERS: ACTIVITY ORDERS: Activity as tolerated WEIGHT BEARING STATUS: No restrictions DIET AFTER DISCHARGE: Regular (dysphagia 2) TREATMENT/EQUIPMENT ORDERS: ADAPTIVE EQUIPMENT NEEDED: Wheelchair (2 person assist) Physical Therapy For: Evalulation/Treatment Occupational Therapy For: Evaluation/Treatment DISCHARGE MEDICATIONS: Home Meds Active Scripts Amoxicillin/Potassium Clav (AUGMENTIN 500-125 TABLET) 1 Each Tablet, 1 TAB PO BID for ear infection for 7 Days, #14 TAB 0 Refills Prov:YUNG MARRERO MD 05/05/21 Apixaban (ELIQUIS) 5 Mg Tablet, 5 MG PO BID for PE, #60 TAB 2 Refills Prov:CHI MANCILLA MD 06/06/20 Reported Medications Hydrocodone Bit/Acetaminophen (HYDROCODONE-APAP 5-325 ) 1 Tab Tablet, 1 TAB PO PRN Q6HRS PRN for PAIN, TAB 0 Refills 05/02/21 Guaifenesin/Dextromethorphan (Guaifenesin-Dm 400-20 mg Cplt) 1 Each Tablet, 1 EACH PO BID for cough, TAB 05/02/21 Ergocalciferol (Vitamin D2) (Vitamin D2) 1,250 Mcg Capsule, 1250 MCG PO DAILY for supplement, CAP 05/02/21 Apixaban (ELIQUIS) 5 Mg Tablet, 5 MG PO BID for aflutter, TAB 05/02/21 Amiodarone Hcl (AMIODARONE HCL) 200 Mg Tablet, 1 TAB PO DAILY for aflutter, #90 TAB 1 Refill 05/02/21 Donepezil Hcl (DONEPEZIL HCL) 10 Mg Tablet, 1 TAB PO DAILY for DEMENTIA, #90 TAB 1 Refill 06/03/20 YUNG MARRERO MD May 05, 2021 10:39
[2021-05-05 11:00] VITALS: BP 130/84
[2021-05-05] MEDS ORDERED: POTASSIUM CHLORIDE 20 MEQ TABLET.ER. PO ONE (11:00)
[2021-05-05 11:31] LABS: CALCIUM 7.9 mg/dL (8.5-10.1); CREATININE 0.5 mg/dL (0.6-1.0); GFR 116.4; POTASSIUM 3.1 mmol/L (3.5-5.1)
[2021-05-05] MEDS: guaiFENesin DM 600/30MG 1 TAB TAB.ER.12H PO SCH (12:15)
[2021-05-05] MEDS: LACTOBACILLUS RHAMNOSUS GG 1 CAPSULE. PO SCH (12:15)
[2021-05-05] MEDS: CHOLECALCIFEROL (VITAMIN D3) 5,000 UNIT CAPSULE PO SCH (12:16)
[2021-05-05] MEDS: AMIODARONE HCL 200 MG TABLET. PO SCH (12:16)
[2021-05-05] MEDS: APIXABAN 5 MG TABLET. PO SCH (12:16)
[2021-05-05] MEDS: MULTIVITAMIN with MINERAL TABLET. PO SCH (12:17)
[2021-05-05] MEDS: ASCORBIC ACID 500 MG TABLET PO SCH (12:17)
[2021-05-05] MEDS: VANCOMYCIN PER PHARMACY MC PRN (13:04)
[2021-05-05 15:00] VITALS: BP 145/76
--- NOTE | 2021-05-05 16:10 | PDOC3 ---
Discharge Summary Visit Information Date of Admission: May 02, 2021 Date of Discharge: May 05, 2021 Final Diagnosis Otitis externa, Vanc/zosyn, has been in nursing homes cellulitis face right parotid tumor Hx PUlmonary embolism, on eliquis dementia may be more severe than i thought yesterday, not very responsive hypokalemia replaced, weakness htn Problems Medical Problems: (1) Mass of right parotid gland Status: Acute (2) Right otitis externa Status: Acute Brief Hospital Course Allergies Allergies Coded Allergies Type Severity Reaction Last Updated Verified No Known Drug Allergies 10/19/20 No Vital Signs Vital Signs Date Time Temp Pulse Resp B/P (MAP) Pulse Ox O2 Delivery O2 Flow Rate FiO2 05/05/21 12:16 54 124/79 05/05/21 11:00 97.8 17 91 Room Air 97.8 Lab Results Laboratory Tests Test 05/04/21 10:05 05/05/21 11:10 White Blood Count 11.6 x10^3/uL (4.0-11.0) Red Blood Count 3.27 x10^6/uL (3.50-5.40) Hemoglobin 9.5 g/dL (12.0-15.5) Hematocrit 29.8 % (36.0-47.0) Mean Corpuscular Volume 91 fL (79-100) Mean Corpuscular Hemoglobin 29 pg (25-35) Mean Corpuscular Hemoglobin Concent 32 g/dL (31-37) Red Cell Distribution Width 17.6 % (11.5-14.5) Platelet Count 261 x10^3/uL (140-400) Sodium Level 145 mmol/L (136-145) 138 mmol/L (136-145) Potassium Level 2.8 mmol/L (3.5-5.1) 3.1 mmol/L (3.5-5.1) Chloride Level 109 mmol/L (98-107) 105 mmol/L (98-107) Carbon Dioxide Level 26 mmol/L (21-32) 25 mmol/L (21-32) Anion Gap 10 (6-14) 8 (6-14) Blood Urea Nitrogen 13 mg/dL (7-20) 8 mg/dL (7-20) Creatinine 0.6 mg/dL (0.6-1.0) 0.5 mg/dL (0.6-1.0) Estimated GFR (Cockcroft-Gault) 94.3 116.4 BUN/Creatinine Ratio 22 (6-20) Glucose Level 120 mg/dL (70-99) 121 mg/dL (70-99) Calcium Level 7.7 mg/dL (8.5-10.1) 7.9 mg/dL (8.5-10.1) Total Bilirubin 0.6 mg/dL (0.2-1.0) Aspartate Amino Transf (AST/SGOT) 10 U/L (15-37) Alanine Aminotransferase (ALT/SGPT) 14 U/L (14-59) Alkaline Phosphatase 107 U/L (46-116) Total Protein 5.3 g/dL (6.4-8.2) Albumin 1.8 g/dL (3.4-5.0) Albumin/Globulin Ratio 0.5 (1.0-1.7) Vancomycin Level Trough 3.0 mcg/mL (10.0-20.0) Vancomycin Last Dose Date 05/03/21 Vancomycin Last Dose Time 1030 Laboratory Tests Test 05/05/21 11:10 Sodium Level 138 mmol/L (136-145) Potassium Level 3.1 mmol/L (3.5-5.1) Chloride Level 105 mmol/L (98-107) Carbon Dioxide Level 25 mmol/L (21-32) Anion Gap 8 (6-14) Blood Urea Nitrogen 8 mg/dL (7-20) Creatinine 0.5 mg/dL (0.6-1.0) Estimated GFR (Cockcroft-Gault) 116.4 Glucose Level 121 mg/dL (70-99) Calcium Level 7.9 mg/dL (8.5-10.1) Brief Hospital Course Ms. Rodriguez is a 86 old female, admit with right facial swelling, redness, CT showed new tumor, treat infeciton, biopsy was not considered due to weakness and dementia would consider hospice care, recommeneded she is baseline 2 person assist to wheelchiar and needs help with meals, prob 6/6 ADL dependent Discharge Information Condition at Discharge: Improved Follow Up: Weeks Disposition/Orders: D/C to Another Facility Scheduled Amiodarone Hcl (Amiodarone Hcl) 200 Mg Tablet, 1 TAB PO DAILY for aflutter, #90 Ref 1 (Reported) Entered as Reported by: CHRISTA BARGER RN on 05/02/211447 Last Taken: UNKNOWN on Unknown Date & Time Last Action: Continued on 05/02/211449 by CHRISTA BARGER RN Amoxicillin/Potassium Clav (Augmentin 500-125 Tablet) 1 Each Tablet, 1 TAB PO BID for ear infection for 7 Days, #14 Ref 0 Prescribed by: YUNG MARRERO on 05/05/21 1037 Apixaban (Eliquis) 5 Mg Tablet, 5 MG PO BID for PE, #60 Ref 2 Prescribed by: CHI MANCILLA MD on 06/06/20 1129 Apixaban (Eliquis) 5 Mg Tablet, 5 MG PO BID for aflutter, (Reported) Entered as Reported by: CHRISTA BARGER RN on 05/02/211447 Last Taken: UNKNOWN on Unknown Date & Time Last Action: Continued on 05/02/211449 by CHRISTA BARGER RN Donepezil Hcl (Donepezil Hcl) 10 Mg Tablet, 1 TAB PO DAILY for DEMENTIA, #90 Ref 1 (Reported) Entered as Reported by: SYEDA GARCIA RN on 06/03/20 0153 Ergocalciferol (Vitamin D2) (Vitamin D2) 1,250 Mcg Capsule, 1,250 MCG PO DAILY for supplement, (Reported) Entered as Reported by: CHRISTA BARGER RN on 05/02/211447 Last Taken: UNKNOWN on Unknown Date & Time Last Action: Continued on 05/02/211449 by CHRISTA BARGER RN Guaifenesin/Dextromethorphan (Guaifenesin-Dm 400-20 mg Cplt) 1 Each Tablet, 1 EACH PO BID for cough, (Reported) Entered as Reported by: CHRISTA BARGER RN on 05/02/211447 Last Taken: UNKNOWN on Unknown Date & Time Last Action: Converted on 05/02/211449 by CHRISTA BARGER RN Scheduled PRN Hydrocodone Bit/Acetaminophen (Hydrocodone-Apap 5-325 ) 1 Tab Tablet, 1 TAB PO PRN Q6HRS PRN for PAIN, Ref 0 (Reported) Entered as Reported by: CHRISTA BARGER RN on 05/02/211447 Last Action: Continued on 05/02/211449 by CHRISTA BARGER RN Patient Instructions Patient Instructions face to face 35 min additional 20 minute phone call with son, who was not the DPOA, they tried to get that,but she was too demented to declare. ADvanced care planning as I explained above and gave recs for hospice. Justicifation of Admission Dx: Justifications for Admission: Justification of Admission Dx: Yes YUNG MARRERO MD May 05, 2021 16:10
--- NOTE | 2021-05-05 18:02 | NUR ---
PATIENT LEAVES THE UNIT PER STRETCHER, ALERT AND VERBALLY RESPONSIVE BUT CONFUSED, THIS EDGE SETTER HAS TO CALL REPORT TO JONATHAN AT LEAST THREE TIMES, BUT NO PICKS UP THE PHONE, WILL RETRY BEFORE SHIFT CHANGE.
[2021-05-05] MEDS ORDERED: AMOXICILLIN/K CLAV 500/125MG TABLET. PO SCH (21:00)
== END 2021-05-05 18:00 | DRG 871 ==
LOC: ER 08:33 → 5 NORTH 11:24
PROVIDERS: ADMIT Internal Medicine; ATTEND Internal Medicine
DX: A41.9 Sepsis, unspecified organism (principal); E43 Unspecified severe protein-calorie malnutrition; L03.211 Cellulitis of face; H60.20 Malignant otitis externa, unspecified ear; G93.40 Encephalopathy, unspecified; Z68.1 Body mass index [BMI] 19.9 or less, adult; H60.91 Unspecified otitis externa, right ear; D49.0 Neoplasm of unspecified behavior of digestive system; F03.90 Unspecified dementia, unspecified severity, without behavioral disturbance, psychotic disturbance, mood disturbance, and anxiety; I10 Essential (primary) hypertension; Z86.711 Personal history of pulmonary embolism; E87.6 Hypokalemia
CPT/HCPCS: 36415; 70460; 70487; 80048; 80053; 80202; 81001; 83605; 85025; 85027; 85651; 86140; 87040; 87086; 96365; 96366; 96368; J2543; J3370; J3475; J3480; J7030; J7040; J7050; Q9967; 92610-GN; 99285-25; G0378